=== PATIENT | male | born 1950 | race Caucasian/White ===

== ENCOUNTER 2020-05-14 08:52 | Outpatient (REF) | payer MEDICARE, SELFPAY ==
--- NOTE | ~2020-05-14 | FL_ITS ---
EXAMINATION: XR UPPER GI SERIES WITH SMALL BOWEL CLINICAL INFORMATION: History of small bowel obstruction. Question cause. COMPARISON: None. TECHNIQUE: An initial apartment leasing consultant image was obtained. Fluoroscopic assessment of the upper GI tract was performed in various upright and supine/prone obliquities utilizing thin and thick high density barium contrast material and effervescent granules. Following this, additional contrast was administered orally, and interval abdominal radiographs were performed to assess for contrast progression through the small bowel. Following contrast transit through the small bowel and into the colon, the patient was placed on the fluoroscopy table, and multiple spot images were obtained. FINDINGS: Van Loader image of the abdomen demonstrates a normal bowel gas pattern. The esophagus was normal in course, caliber, and contour. There was normal distensibility with no fixed segment of narrowing. No focal mucosal abnormality was identified. Mild to moderate esophageal dysmotility was observed. Contrast passed freely across the gastroesophageal junction into the stomach. Small sliding hiatal hernia. There was normal distensibility of the stomach with no focal abnormality identified. There was prompt gastric emptying into the duodenum which demonstrated a normal appearance. No gastroesophageal reflux was observed. There was normal transit time of contrast material through the small bowel, with contrast present in the colon by 30 minutes. Small bowel loops are of normal caliber throughout the abdomen and pelvis. The jejunal and ileal fold patterns are normal, without evidence of abnormal thickening. No fixed regions of luminal narrowing are seen to suggest stricturing. The terminal ileum demonstrates a normal appearance. FLUOROSCOPY TIME: 2.7 minutes DOSE AREA PRODUCT: 37.451 Gy-cm2 (king-centimeter squared) FL/FL upper GI small bowel IMPRESSION: 1. Small sliding hiatal hernia. Mild to moderate esophageal dysmotility. Normal appearance of the stomach with normal gastric emptying. 2. Normal small bowel follow-through.
== END 2020-05-14 08:53 | disposition home or self-care (01) ==
LOC: HO.XRAY 08:52
PROVIDERS: PCP Family Medicine; Visit Provider Family Medicine
DX: Z87.19 Personal history of other diseases of the digestive system (principal)
CPT/HCPCS: 74240; 74248

== ENCOUNTER 2020-07-06 08:21 | Day surgery (SDC) | payer MEDICARE, SELFPAY ==
[2020-06-30 11:28] VITALS: BMI 23.6
--- NOTE | 2020-07-02 11:24 | P.CONAN_ITS ---
Documented by User: Laura Garcia 07/03/20 13:37 HPI - Anesthesia Eval Consult details Narrative: 70yo M for Upper Endoscopy and Colonoscopy 2014 CAD with stent hx. No current cardiac info. PCP office closed 07/03. [facility] Past Medical History Medical History CAD (coronary artery disease) Cough COVID-19 vaccine series completed Elevated cholesterol GERD (gastroesophageal reflux disease) HTN (hypertension) Hx of renal calculi Hx of small bowel obstruction Seasonal allergies Sleep apnea Surgical History Surgical History History of cardiac cath History of esophagogastroduodenoscopy (EGD) Hx of arthroscopy of knee Hx of colonoscopy Hx of lithotripsy Social History Social History Smoking Status: Never smoker Use of substances other than those prescribed or required for medical reasons: No Have you been hit, kicked, punched, or otherwise hurt by someone within the past year? If so, by whom?: No Are you DNR?: No Advance Directives: No Advance Directives Information Provided: No Advance Directives on File: No Meds Allergies Allergy/AdvReac Type Severity Reaction Status Date / Time benzalkonium chloride Allergy Swelling Verified 07/06/20 09:27 [From Merthiolate (benzalkonium)] atorvastatin [From Lipitor] AdvReac Joint Pain Verified 07/06/20 09:27 Home Medications Medication Instructions Recorded Confirmed Last Taken Type amlodipine 1 tab PO BEDTIME 06/30/20 06/30/20 Unknown History aspirin [Aspir-81] 81 mg PO DAILY 06/30/20 06/30/20 Unknown History cyclobenzaprine 10 mg PO BEDTIME PRN 06/30/20 06/30/20 Unknown History glucosamine sulfate [Glucosamine] 500 mg PO BID 06/30/20 06/30/20 Unknown History isosorbide mononitrate 1 tab PO DAILY 06/30/20 06/30/20 07/06/20 07:30 History metoprolol succinate 1 tab PO DAILY 06/30/20 06/30/20 07/06/20 07:30 History nitroglycerin 0.4 mg SUBLINGUAL Q5M PRN 06/30/20 06/30/20 Unknown History pantoprazole [Protonix] 1 tab PO DAILY 06/30/20 06/30/20 07/06/20 07:30 History rosuvastatin 1 tab PO DAILY 06/30/20 06/30/20 Unknown History Exam Exam Date and Time: July 02, 2020 1124 Height,Weight and Vital Signs: Height 5 ft 8 in Weight 70.307 kg Assessment and Plan Assessment Anesthesia Assessment: Chart Reviewed Documented by User: Florentino Sapp 07/06/20 09:31 [facility] Past Medical History Medical History CAD (coronary artery disease) Cough COVID-19 vaccine series completed Elevated cholesterol GERD (gastroesophageal reflux disease) HTN (hypertension) Hx of renal calculi Hx of small bowel obstruction Seasonal allergies Sleep apnea Surgical History Surgical History History of cardiac cath History of esophagogastroduodenoscopy (EGD) Hx of arthroscopy of knee Hx of colonoscopy Hx of lithotripsy Social History Social History Smoking Status: Never smoker Use of substances other than those prescribed or required for medical reasons: No Have you been hit, kicked, punched, or otherwise hurt by someone within the past year? If so, by whom?: No Are you DNR?: No Advance Directives: No Advance Directives Information Provided: No Advance Directives on File: No Meds Allergies Allergy/AdvReac Type Severity Reaction Status Date / Time benzalkonium chloride Allergy Swelling Verified 07/06/20 09:27 [From Merthiolate (benzalkonium)] atorvastatin [From Lipitor] AdvReac Joint Pain Verified 07/06/20 09:27 Home Medications Medication Instructions Recorded Confirmed Last Taken Type amlodipine 1 tab PO BEDTIME 06/30/20 06/30/20 Unknown History aspirin [Aspir-81] 81 mg PO DAILY 06/30/20 06/30/20 Unknown History cyclobenzaprine 10 mg PO BEDTIME PRN 06/30/20 06/30/20 Unknown History glucosamine sulfate [Glucosamine] 500 mg PO BID 06/30/20 06/30/20 Unknown History isosorbide mononitrate 1 tab PO DAILY 06/30/20 06/30/20 07/06/20 07:30 History metoprolol succinate 1 tab PO DAILY 06/30/20 06/30/20 07/06/20 07:30 History nitroglycerin 0.4 mg SUBLINGUAL Q5M PRN 06/30/20 06/30/20 Unknown History pantoprazole [Protonix] 1 tab PO DAILY 06/30/20 06/30/20 07/06/20 07:30 History rosuvastatin 1 tab PO DAILY 06/30/20 06/30/20 Unknown History Exam Airway Mallampati Class: II TM Dist: >3cm Neck ROM: Full
[2020-07-06 08:39] VITALS: BP 129/93; PULSE 69; RESP 18; TEMP 36.4; O2SAT 97
[2020-07-06] MEDS: Lactated Ringers 1,000 ML 100 ML IVCONT (09:04)
[2020-07-06 10:51] VITALS: BP 100/56; PULSE 54; RESP 16; TEMP 36.3; O2SAT 96
--- NOTE | 2020-07-06 10:55 | P.BOP_ITS ---
Brief Operative Note Date of Service: 07/06/20 Pre-op diagnosis: GERD, Change in Bowel habits Post-op diagnosis: other (Hiatal hernia, Gastritis, Colon polyp) Procedure: EGD with biopsies, Colonoscopy to the cecum and TI with biopsy and removal of polyp Surgeon: Luke Medrano Anesthesia: MAC Was an Dye House Wheel Operator used for this Procedure?: No Estimated blood loss (mL): 4.0 Pathology: other (A. Gastric antrum B. Ascending colon polyp) Condition: stable Disposition: PACU
[2020-07-06 11:06] VITALS: BP 108/61; PULSE 55; RESP 16; TEMP 36.3; O2SAT 96
--- NOTE | 2020-07-06 13:13 | OP_ITS ---
SURGEON: Luke Medrano MD INDICATIONS: The patient presents for evaluation of some irregular bowel movements, history of tubular adenoma of the colon, and abdominal discomfort. Full consent has been obtained from him for this, including risks of bleeding and perforation. PREOPERATIVE DIAGNOSIS: POSTOPERATIVE DIAGNOSIS: PROCEDURE PERFORMED: Esophagogastroduodenoscopy with biopsies, and colonoscopy to cecum and terminal ileum with biopsy and removal of polyp. ESTIMATED BLOOD LOSS: COMPLICATIONS: ANESTHESIA: Monitored anesthesia care. ASSISTANTS: SPECIMENS: PREOPERATIVE DIAGNOSES: Irregular bowel movements, personal history of tubular adenoma of the colon, abdominal discomfort, gastroesophageal reflux. POSTOPERATIVE DIAGNOSES: Irregular bowel movements, personal history of tubular adenoma of the colon, abdominal discomfort, gastroesophageal reflux, hiatal hernia, mild gastritis and duodenitis, colon polyp, diverticulosis and internal hemorrhoids. DESCRIPTION OF PROCEDURE: The patient was placed in the left lateral decubitus position. The Olympus video gastroscope was passed in the posterior oropharynx and upper esophagus under direct vision. The scope was passed slowly into the distal esophagus. The gastroesophageal junction appeared normal at 33 cm. There was no sign of any esophagitis nor Oakley's esophagus. There was a moderate-sized hiatal hernia noted. The hiatal hernia mucosa appeared normal. The scope was advanced to pylorus and duodenum was cannulated to the descending portion. The duodenum including the bulb appeared normal and had some very minimal areas of erythema in the duodenal bulb. The scope was withdrawn back in the stomach. The gastric antrum had areas of erythema and some edema, but no erosions or ulceration. There was good peristalsis. Scope was retroflexed visualizing the proximal stomach carefully, which appeared normal, without any sign of mass or ulceration. The scope was straightened. Biopsies were obtained from the gastric antrum. Scope was withdrawn back in the esophagus. The esophageal mucosa appeared normal. The scope was withdrawn from the patient. He was turned around for the colonoscopy. The digital rectal exam revealed no abnormalities. The Olympus video pediatric colonoscope was entered into the rectum and advanced easily to the cecum. Once in the cecum, I did identify normal-appearing cecal pouch with appendiceal orifice and a normal-appearing ileocecal valve. The terminal ileum was cannulated and appeared normal. The scope was withdrawn back in the colon. The entire cecum and ileocecal valve appeared normal. The scope was slowly withdrawn assessing all mucosal surfaces carefully. Preparation was excellent. In the ascending colon, was a flat approximately 4 mm polyp, which was biopsied and completely removed with cold biopsy forceps. I did not visualize any other polyps, colitis, nor angiodysplasia. There was a mild amount of sigmoid diverticulosis. In the rectum, scope was retroflexed visualizing internal hemorrhoids, but no other pathology. The rectal mucosa appeared normal. Scope was straightened out and withdrawn from the patient. He tolerated both procedures well and was returned to the recovery area in stable condition. IMPRESSION: 1. Hiatal hernia. 2. Mild gastritis. 3. Mild duodenitis. 4. Small colon polyp. 5. Diverticulosis. 6. Internal hemorrhoids. PLAN: The results of the pathology will be checked. I would recommend a repeat colonoscopy in 5 years for further screening. He was advised to continue pantoprazole as needed for his reflux. He was advised to resume his aspirin by tomorrow. He was advised not to use any NSAIDs for at least a week. He was advised to continue his bowel regimen with MiraLAX and/or a fiber supplement daily to help with his constipation. MD LISS Mclain/CARMELA / [id number]
== END 2020-07-06 11:55 | disposition home or self-care (01) ==
PROVIDERS: PCP Family Medicine; Visit Provider Internal Medicine
PROC: (CPT 45380; principal; 2020-07-06 09:20)
DX: R19.4 Change in bowel habit (principal); Z86.010 Personal history of colon polyps; D12.2 Benign neoplasm of ascending colon; K57.30 Diverticulosis of large intestine without perforation or abscess without bleeding; K64.8 Other hemorrhoids; K21.9 Gastro-esophageal reflux disease without esophagitis; K29.50 Unspecified chronic gastritis without bleeding; K29.80 Duodenitis without bleeding; K44.9 Diaphragmatic hernia without obstruction or gangrene; G47.33 Obstructive sleep apnea (adult) (pediatric); I10 Essential (primary) hypertension; Z99.89 Dependence on other enabling machines and devices; Z79.899 Other long term (current) drug therapy
CPT/HCPCS: 45380; 43239; 88305; 88342; J3010

== ENCOUNTER 2021-04-20 15:07 | Outpatient (REF) | payer MEDICARE, SELFPAY ==
--- NOTE | ~2021-04-20 | XR_ITS ---
EXAMINATION: RIGHT SHOULDER AND RIGHT CLAVICLE X-RAY CLINICAL INFORMATION: Pain COMPARISON: None TECHNIQUE: 2 views of the right clavicle and 4 views of the right shoulder FINDINGS: Bone alignment is normal. No fracture or dislocation is seen. The glenohumeral joint is normal. There is mild arthritis at the acromioclavicular joint. There is a small undersurface acromial osteophyte. Soft tissues are unremarkable. XR/XR shoulder RT min 2V IMPRESSION: Mild arthritis at the acromioclavicular joint and small undersurface acromial osteophyte.
--- NOTE | ~2021-04-20 | XR_ITS ---
EXAMINATION: RIGHT SHOULDER AND RIGHT CLAVICLE X-RAY CLINICAL INFORMATION: Pain COMPARISON: None TECHNIQUE: 2 views of the right clavicle and 4 views of the right shoulder FINDINGS: Bone alignment is normal. No fracture or dislocation is seen. The glenohumeral joint is normal. There is mild arthritis at the acromioclavicular joint. There is a small undersurface acromial osteophyte. Soft tissues are unremarkable. XR/XR clavicle RT IMPRESSION: Mild arthritis at the acromioclavicular joint and small undersurface acromial osteophyte.
== END 2021-04-20 15:08 | disposition home or self-care (01) ==
LOC: HO.XRAY 15:07
PROVIDERS: PCP Family Medicine; Visit Provider Family Medicine
DX: M25.511 Pain in right shoulder (principal)
CPT/HCPCS: 73000; 73030

== ENCOUNTER 2021-07-20 14:25 | Outpatient (REF) | payer MEDICARE, SELFPAY ==
[2021-07-22 14:42] LABS: Immunoglobulin A 184 mg/dL (70-320)
[2021-07-25 11:46] LABS: Endomysial IgA Antibody Negative (Negative)
[2021-07-26 16:47] LABS: Transglutaminase Ab IgG <1.0 U/mL; Transglutaminase IgA <1.0 U/mL
[2021-07-29 07:56] LABS: Gliadin Deamidated IgA Ab <1.0 U/mL; Gliadin Deamidated IgG Ab <1.0 U/mL
== END 2021-07-20 14:26 | disposition home or self-care (01) ==
LOC: HO.LAB 14:25
PROVIDERS: PCP Family Medicine; Visit Provider Internal Medicine
DX: R14.0 Abdominal distension (gaseous) (principal)
CPT/HCPCS: 36415; 82784; 86231; 86258; 86364